=== PATIENT | female | born 1995 | race Caucasian/White ===

== ENCOUNTER 2021-07-13 18:45 | Emergency (ER) | payer OTHER ==
[~2021-07-13] VITALS: Ht 160 cm; Wt 54.4 kg
[2021-07-13] MEDS ORDERED: MEDROLPACK PO (23:03)
== END 2021-07-13 23:03 | disposition home or self-care (01) ==
LOC: ER 18:45
DX: U07.1 COVID-19 (principal); J02.8 Acute pharyngitis due to other specified organisms